=== PATIENT | male | born 1975 | race Hispanic/Latino ===

== ENCOUNTER 2018-07-03 07:23 | Emergency (ER) | payer SELFPAY ==
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
--- NOTE | 2018-07-04 09:34 | EKG ---
Test Date: 2018-07-03 Test Time: 07:36:41 Tufter Operator: MARISA MEASUREMENT RESULTS: Intervals: Rate: 91 MT: 144 QRSD: 94 QT: 354 QTc: 435 [place]: P: 50 MT: 144 QRS: 50 T: -7 INTERPRETIVE STATEMENTS: Normal sinus rhythm Nonspecific T wave abnormality Abnormal ECG No previous ECG available for comparison Electronically Signed On 07-04-18 09:32:32 CDT by Keven Galindo
== END 2018-07-03 08:21 | disposition home or self-care (01) ==
LOC: ER 07:23
DX: R07.89 Other chest pain (principal); V59.40XA Driver of pick-up truck or van injured in collision with unspecified motor vehicles in traffic accident, initial encounter
CPT/HCPCS: 71046; 93005; 99284